=== PATIENT | male | born 1980 | race African-American/Black ===

== ENCOUNTER 2018-09-07 05:09 | Emergency (ER) | payer OTHER ==
[2018-09-07] MEDS: LACTATED RINGERS SOLUTION 1,000 ML IV STA ×3 (05:10→07:06)
--- NOTE | 2018-09-07 05:22 | PDOC ---
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 Patient states that when he vomits his abdomen hurts all over but when he isn't vomiting he has no abdominal pain. The patient states he has been feeling extremely dehydrated for the past 2 days but had to keep working because he needs to save up to buy a house soon. Patient denies having a headache, neck pain, blurry vision, chest pain, SOB, difficulty breathing, dysuria, frequency, urgency, numbness, weakness, tingling , or chills. PCP: None PSH: Umbilical hernia surgery, pilonidal cyst surgery Allergies: NKA, NKDA Social Hx: Smokes 1 PPD, smokes marijuana occasionally, denies alcohol or illicit drug usage Past History - Past Medical History Allergies/Adverse Reactions: Allergies Allergy/AdvReac Type Severity Reaction Status Date / Time No Known Allergies Allergy Verified 09/07/18 05:21 Home Medications: Ambulatory Orders NK [No Known Home Medication] 09/07/18 - Suicide/Smoking/Psychosocial Hx Smoking History: Current every day smoker Have you smoked in the past 12 months: No Number of Cigarettes Smoked Daily: 5 Information on smoking cessation initiated: No Hx Alcohol Use: No Drug/Substance Use Hx: No Review of Systems - Review of Systems Able to Perform ROS?: Yes Comments:: CONSTITUTIONAL: Present: generalized weakness, malaise Absent: fever, chills, diaphoresis, loss of appetite HEENT: Absent: rhinorrhea, nasal congestion, throat pain, throat swelling, difficulty swallowing, mouth swelling, ear pain, eye pain, visual Changes CARDIOVASCULAR: Absent: chest pain, syncope, palpitations, irregular heart rate, lightheadedness , peripheral edema RESPIRATORY: Absent: cough, shortness of breath, dyspnea with exertion, orthopnea, wheezing, stridor, hemoptysis GASTROINTESTINAL: Present: Abdominal pain, nausea, vomiting Absent: abdominal distension, diarrhea, constipation, melena, hematochezia GENITOURINARY: Absent: dysuria, frequency, urgency, hesitancy, hematuria, flank pain, genital pain MUSCULOSKELETAL: Absent: myalgia, arthralgia, joint swelling SKIN: Absent: rash, itching, pallor HEMATOLOGIC/IMMUNOLOGIC: Absent: easy bleeding, easy bruising, lymphadenopathy, frequent infections ENDOCRINE: Absent: unexplained weight gain, unexplained weight loss, heat intolerance, cold intolerance NEUROLOGIC: Absent: headache, focal weakness or paresthesias, dizziness, unsteady gait, seizure, mental status changes, bladder or bowel incontinence PSYCHIATRIC: Absent: anxiety, depression, suicidal or homicidal ideation, hallucinations. *Physical Exam - Vital Signs Last Vital Signs Temp Pulse Resp BP Pulse Ox 98.9 F 58 L 18 143/97 99 09/07/18 05:09/07/18 05:09/07/18 05:09/07/18 05:09/07/18 05:17 - Physical Exam Comments: GENERAL: Well developed, well nourished. Awake and alert. Mild distress. HEENT: Normocephalic, atraumatic. PERRLA, EOMI. No conjunctival pallor. Sclera are non- icteric. Moist mucous membranes. Oropharynx is clear. NECK: Supple. Full ROM. No JVD. No lymphadenopathy. CARDIOVASCULAR: Regular rate and rhythm. No murmurs, rubs, or gallops. Distal pulses are 2+ and symmetric. PULMONARY: No evidence of respiratory distress. Lungs clear to auscultation bilaterally. No wheezing, rales or rhonchi. ABDOMINAL: Soft. Non-tender. Non-distended. No rebound or guarding. No organomegaly. Normoactive bowel sounds. MUSCULOSKELETAL Normal range of motion at all joints. No bony deformities or tenderness. No CVA tenderness. EXTREMITIES: No cyanosis. No clubbing. No edema. No calf tenderness. SKIN: Warm and dry. Normal capillary refill. No rashes. No jaundice. NEUROLOGICAL: Alert, awake, appropriate. Cranial nerves 2-12 intact. No deficits to light touch in face, upper extremities and lower extremities. No motor deficits in the in face, upper extremities and lower extremities. Normal speech. Gait is normal without ataxia. PSYCHIATRIC: Cooperative. Good eye contact. Appropriate mood and affect. Heart Score/ECG Review - ECG Intrepretation Rhythm: Regular Rhythm - [place]: Normal - P and HI Prominent R with upright T in V1 (true posterior IA): No Delta Wave(s) Present: No WPW: No - QRS Increased Voltage: Limb Leads Poor R Wave Progression: No Q Wave Present: No - ST and T Early Repolarization: Yes Non Specific ST-T Wave changes: No T Wave Elevation Suggest: Electrolyte Imbalance Flattened T Waves: No Prolonged Q-T Interval: No - ECG Impressions Normal ECG: No Non-specific ST Elevation: No Ischemic Changes: No Electrolyte Imbalance: Electrolyte Imbalance Torsades julia Pointes: No WPW: No ED Treatment Course - LABORATORY CBC & Chemistry Diagram: 09/07/18 05:32 09/07/18 08:18 Medical Decision Making - Medical Decision Making Yaakov Cazares is a 37 yo M w a pmh sig for asthma who presents to the ER after 10 episodes of nausea and vomiting saying he believes he is having a heat 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 Patient states that when he vomits his abdomen hurts all over but when he isn't vomiting he has no abdominal pain. The patient states he has been feeling extremely dehydrated for the past 2 days but had to keep working because he needs to save up to buy a house soon. Vital Signs Temp Pulse Resp BP Pulse Ox 98.9 F 58 L 18 143/97 99 09/07/18 05:17 09/07/18 05:17 09/07/18 05:17 09/07/18 05:17 09/07/18 05:17 DDx IBNLT: Heat stroke vs heat exhaustion, dehydration, gastroenteritis, electrolyte/metabolic disturbance, arrhythmia -Patient states he has not been to a doctor in a long time and requests to be STD tested Plan: Labs, Urine, IV hydration, EKG, analgesia, STD tests, GI cocktail, anti- emetics, re-asses. Labs: Patient has an elevated BUN/Cr and is experiencing an ANETTE. Patient also has a mild hyponatremia and decreased MCV. - Will hydrate the patient and then resend a BMP - Will obtain a CPK - Hydrated patient w 4 liters of fluid. 2 LR and 2 NS. Repeat labs: Cr and BUN came down, sodium normalized Urine: Trace ketonuria EKG: NS rate of 65, narrow complexes, normal axis, there is borderline LVH, No ST elevation or depression, There is benign early repol, TWI in aVL, Peaked T- waves in pre-cordial leads, HI - 124, QTc - 407. Re-assessment: Patient feels much better after IV hydration and analgesia and requests to be discharged home. He has no further complaints. Disposition: Home if clinically improved and labs improve after hydration. Patient will be signed out to the day team pending repeat BMP, CPK, urine, additional hydration, and further care and disposition. *DC/Admit/Observation/Transfer Diagnosis at time of Disposition: ANETTE (acute kidney injury), Dehydration Nausea & vomiting Qualifiers: Vomiting type: unspecified Vomiting Intractability: unspecified Qualified Code( s): R11.2 - Nausea with vomiting, unspecified Abdominal pain Qualifiers: Abdominal location: generalized Qualified Code(s): R10.84 - Generalized abdominal pain - Discharge Dispostion Disposition: HOME Condition at time of disposition: Improved - Referrals Referrals: [facility] [place] [facility] at [place] [Provider Group] - Patient Instructions Printed Discharge Instructions: DI for Heat Exhaustion and Heat Stroke, DI for Dehydration -- Adult, Acute Renal Failure Additional Instructions: stay well hydrated with the current heat wave stay indoors and cooling environment follow up with your doctor. If you have any worsening of symptoms or any other concerns please return to the ED immediately. Return if worsening symptoms including fevers, headache, vomiting, visual or hearing disturbances, abdominal pain, chest pain, shortness of breath, syncope, dehydration, inability to take things by mouth/vomiting, altered mental status, or worsening concerning symptoms. Print Language: AZERI - Post Discharge Activity
[2018-09-07] MEDS ORDERED: SODIUM CHLORIDE 1,000 ML IV STA (05:25)
--- NOTE | 2018-09-07 05:25 | PDOC ---
Attending Attestation - Resident Resident Name: Willi Manuel - ED Attending Attestation I have performed the following: I have examined & evaluated the patient, The case was reviewed & discussed with the resident, I agree w/resident's findings & plan - HPI HPI: 09/07/18 07:03 Pt comes with heat exposure and exhaustion - Physicial Exam PE: 09/07/18 20:10 Agree with resdient exam - Medical Decision Making 09/07/18 07:04 Hydrate with 2L and repeat labs after 09/07/18 20:10 Pt will be signed out to the day team to reeval and repeat labs once he is hydrated.
[2018-09-07] MEDS ORDERED: ONDANSETRON 4 MG/2 ML VIAL IVPUSH ONE (05:27)
[2018-09-07 05:30] VITALS: BMI 21.7
[2018-09-07] MEDS ORDERED: ONDANSETRON 4 MG/2 ML VIAL ONE (05:34)
[2018-09-07] MEDS ORDERED: ACETAMINOPHEN 325 MG TABLET (FP) PO ONE (05:40)
[2018-09-07] MEDS ORDERED: FAMOTIDINE 20 MG/50 ML IVPB 20 MG/50 ML MG IVPB ONE ×2 (05:40→05:58)
[2018-09-07] MEDS ORDERED: MAG HYDROX/AL HYDROX/SIMETH -MYLANTA- ORAL SUSPENSION PO ONE (05:40)
[2018-09-07 05:49] LABS: EOS % 0.4 % (0-4.5); HEMATOCRIT 46.6 % (35.4-49); HEMOGLOBIN 15.5 GM/dL (11.7-16.9); LYMPH % 24.2 % (8-40); MCH 24.3 pg (25.7-33.7); MCHC 33.1 g/dl (32.0-35.9); MEAN CELL VOLUME 73.4 fl (80-96); MEAN PLT VOLUME 8.7 fl (7.5-11.1); MONO % 10.4 % (3.8-10.2); PLATELET COUNT 374 K/MM3 (134-434); RBC 6.36 M/mm3 (4.00-5.60); RDW 13.4 % (11.9-15.9); WHITE BLOOD COUNT 7.2 K/mm3 (4.0-10.0)
[2018-09-07] MEDS ORDERED: MAG HYDROX/AL HYDROX/SIMETH 30 ML UNIT-DOSE CUP ONE (05:57)
[2018-09-07] MEDS ORDERED: ACETAMINOPHEN 325 MG TABLET (FP) ONE (05:59)
[2018-09-07 06:18] LABS: ALBUMIN 5.3 g/dl (3.4-5.0); ALK PHOS 118 U/L (45-117); ANION GAP 10 MMOL/L (8-16); BILIRUBIN,TOTAL 0.9 mg/dL (0.2-1); BLOOD UREA NITROGEN 22.7 mg/dL (7-18); CALCIUM 10.5 mg/dL (8.5-10.1); CHLORIDE 100 mmol/L (98-107); CO2 24 mmol/L (21-32); CREATININE 1.7 mg/dL (0.55-1.3); GLUCOSE,RANDOM 113 mg/dL (74-106); PHOSPHOROUS 4.2 mg/dL (2.5-4.9); POTASSIUM 5.1 mmol/L (3.5-5.1); SGOT/AST 31 U/L (15-37); SGPT/ALT 32 U/L (13-61); SODIUM 134 mmol/L (136-145); TOT PROT 8.9 g/dl (6.4-8.2)
[2018-09-07 06:42] LABS: LIPASE 167 U/L (73-393); MAGNESIUM 2.7 mg/dL (1.8-2.4)
[2018-09-07] MEDS ORDERED: SODIUM CHLORIDE 0.9% 500 ML INFUS.BAG IV ONE (07:02)
[2018-09-07] MEDS: SODIUM CHLORIDE 0.9% 500 ML INFUS.BAG IV ONE ×2 (07:04→07:08)
[2018-09-07] MEDS ORDERED: LACTATED RINGERS SOLUTION 1000 ML INFUS.BAG IV ONE (07:07)
[2018-09-07 07:56] LABS: URINE APPEARANCE CLEAR; URINE BILIRUBIN NEGATIVE (NEGATIVE); URINE COLOR YELLOW; URINE GLUCOSE (UA) NEGATIVE (NEGATIVE); URINE KETONE TRACE (NEGATIVE); URINE LEUK ESTERASE NEGATIVE (NEGATIVE); URINE NITRITE NEGATIVE (NEGATIVE); URINE PROTEIN NEGATIVE (NEGATIVE)
--- NOTE | 2018-09-07 08:55 | PDOC ---
*Physical Exam - Vital Signs Last Vital Signs Temp Pulse Resp BP Pulse Ox 98.9 F 76 19 115/59 L 99 09/07/18 05:17 09/07/18 08:36 09/07/18 08:36 09/07/18 08:36 09/07/18 08:36 <Fina Guardado - Last Filed: 09/07/18 09:10> - Vital Signs Last Vital Signs Temp Pulse Resp BP Pulse Ox 98.9 F 76 19 115/59 L 99 09/07/18 05:17 09/07/18 08:36 09/07/18 08:36 09/07/18 08:36 09/07/18 08:36 <TabbyTomer - Last Filed: 09/07/18 09:12> ED Treatment Course - LABORATORY CBC & Chemistry Diagram: 09/07/18 05:32 09/07/18 08:18 - ADDITIONAL ORDERS Additional order review: Laboratory Results 09/07/18 09/07/18 09/07/18 08:18 07:37 05:32 Sodium 139 Potassium 4.6 Chloride 107 Carbon Dioxide 25 Anion Gap 7 L BUN 19.5 H Creatinine 1.3 Est GFR (CKD-EPI)AfAm 81.93 Est GFR (CKD-EPI)NonAf 70.69 Random Glucose 101 Lactic Acid Calcium 8.8 Phosphorus Cancelled Magnesium Total Bilirubin AST ALT Alkaline Phosphatase Creatine Kinase Creatine Kinase Index CK-MB (CK-2) Troponin I Total Protein Albumin Lipase Urine Color Yellow Urine Appearance Clear Urine pH 5.0 Ur Specific [place] 1.020 Urine Protein Negative Urine Glucose (UA) Negative Urine Ketones Trace H Urine Blood Negative Urine Nitrite Negative Urine Bilirubin Negative Urine Urobilinogen 1.0 Ur Leukocyte Esterase Negative 09/07/18 09/07/18 09/07/18 05:32 05:32 05:32 Sodium 134 L Potassium 5.1 Chloride 100 Carbon Dioxide 24 Anion Gap 10 BUN 22.7 H Creatinine 1.7 H Est GFR (CKD-EPI)AfAm 59.24 Est GFR (CKD-EPI)NonAf 51.11 Random Glucose 113 H Lactic Acid 1.8 Calcium 10.5 H Phosphorus 4.2 Magnesium Cancelled 2.7 H Total Bilirubin 0.9 AST 31 ALT 32 Alkaline Phosphatase 118 H Creatine Kinase 1085 H Creatine Kinase Index 0.1 CK-MB (CK-2) 2.0 Troponin I < 0.02 Total Protein 8.9 H Albumin 5.3 H Lipase Cancelled 167 Urine Color Urine Appearance Urine pH Ur Specific [place] Urine Protein Urine Glucose (UA) Urine Ketones Urine Blood Urine Nitrite Urine Bilirubin Urine Urobilinogen Ur Leukocyte Esterase 09/07/18 05:32 RBC 6.36 H MCV 73.4 L MCHC 33.1 RDW 13.4 MPV 8.7 Neutrophils % 64.0 Lymphocytes % 24.2 Monocytes % 10.4 H Eosinophils % 0.4 Basophils % 1.0 - Medications Given in the ED: ED Medications Discontinued Medications Generic Name Dose Route Start Last Admin Trade Name Freq PRN Reason Stop Dose Admin Acetaminophen 975 mg 09/07/18 05:40 09/07/18 06:07 Tylenol - PO 09/07/18 05:41 Not Given ONCE ONE Al Hydroxide/Mg Hydroxide 30 ml 09/07/18 05:40 09/07/18 06:07 Mylanta Suspension - PO 09/07/18 05:41 30 ml ONCE ONE Administration Lactated Ringer's 1,000 mls @ 1,000 mls/hr 09/07/18 05:25 09/07/18 05:10 Lactated Ringers Solution IV 09/07/18 06:24 1,000 mls/hr ONCE STA Administration Sodium Chloride 1,000 mls @ 1,000 mls/hr 09/07/18 05:25 09/07/18 05:38 Normal Saline - IV 09/07/18 06:24 1,000 mls/hr ASDIR STA Administration Famotidine/Sodium Chloride 20 mg in 50 mls @ 100 mls/hr 09/07/18 05:40 06:07 Pepcid 20 Mg Premixed Ivpb - IVPB 09/07/18 06:09 100 mls/hr ONCE ONE Administration Lactated Ringer's 1,000 ml 09/07/18 07:07 09/07/18 07:08 Lactated Ringers Solution IV 09/07/18 07:08 Not Given NOW ONE Ondansetron HCl 4 mg 09/07/18 05:27 09/07/18 05:38 Zofran Injection IVPUSH 09/07/18 05:28 4 mg ONCE ONE Administration Sodium Chloride 1,000 ml 09/07/18 06:51 09/07/18 07:08 Normal Saline - IV 09/07/18 06:52 Not Given ONCE ONE Sodium Chloride 1,000 ml 09/07/18 07:02 09/07/18 07:05 Normal Saline - IV 09/07/18 07:03 1,000 ml ONCE ONE Administration <Fina Guardado - Last Filed: 09/07/18 09:10> - LABORATORY CBC & Chemistry Diagram: 09/07/18 05:32 09/07/18 08:18 - ADDITIONAL ORDERS Additional order review: Laboratory Results 09/07/18 09/07/18 09/07/18 07:37 05:32 05:32 Sodium Potassium Chloride Carbon Dioxide Anion Gap BUN Creatinine Est GFR (CKD-EPI)AfAm Est GFR (CKD-EPI)NonAf Random Glucose Lactic Acid Calcium Phosphorus Cancelled Magnesium Cancelled Total Bilirubin AST ALT Alkaline Phosphatase Creatine Kinase Creatine Kinase Index CK-MB (CK-2) Troponin I Total Protein Albumin Lipase Cancelled Urine Color Yellow Urine Appearance Clear Urine pH 5.0 Ur Specific [place] 1.020 Urine Protein Negative Urine Glucose (UA) Negative Urine Ketones Trace H Urine Blood Negative Urine Nitrite Negative Urine Bilirubin Negative Urine Urobilinogen 1.0 Ur Leukocyte Esterase Negative 09/07/18 09/07/18 05:32 05:32 Sodium 134 L Potassium 5.1 Chloride 100 Carbon Dioxide 24 Anion Gap 10 BUN 22.7 H Creatinine 1.7 H Est GFR (CKD-EPI)AfAm 59.24 Est GFR (CKD-EPI)NonAf 51.11 Random Glucose 113 H Lactic Acid 1.8 Calcium 10.5 H Phosphorus 4.2 Magnesium 2.7 H Total Bilirubin 0.9 AST 31 ALT 32 Alkaline Phosphatase 118 H Creatine Kinase 1085 H Creatine Kinase Index 0.1 CK-MB (CK-2) 2.0 Troponin I < 0.02 Total Protein 8.9 H Albumin 5.3 H Lipase 167 Urine Color Urine Appearance Urine pH Ur Specific [place] Urine Protein Urine Glucose (UA) Urine Ketones Urine Blood Urine Nitrite Urine Bilirubin Urine Urobilinogen Ur Leukocyte Esterase 09/07/18 05:32 RBC 6.36 H MCV 73.4 L MCHC 33.1 RDW 13.4 MPV 8.7 Neutrophils % 64.0 Lymphocytes % 24.2 Monocytes % 10.4 H Eosinophils % 0.4 Basophils % 1.0 - Medications Given in the ED: ED Medications Discontinued Medications Generic Name Dose Route Start Last Admin Trade Name Freq PRN Reason Stop Dose Admin Acetaminophen 975 mg 09/07/18 05:40 09/07/18 06:07 Tylenol - PO 09/07/18 05:41 Not Given ONCE ONE Al Hydroxide/Mg Hydroxide 30 ml 09/07/18 05:40 09/07/18 06:07 Mylanta Suspension - PO 09/07/18 05:41 30 ml ONCE ONE Administration Lactated Ringer's 1,000 mls @ 1,000 mls/hr 09/07/18 05:25 09/07/18 05:10 Lactated Ringers Solution IV 09/07/18 06:24 1,000 mls/hr ONCE STA Administration Sodium Chloride 1,000 mls @ 1,000 mls/hr 09/07/18 05:25 09/07/18 05:38 Normal Saline - IV 09/07/18 06:24 1,000 mls/hr ASDIR STA Administration Famotidine/Sodium Chloride 20 mg in 50 mls @ 100 mls/hr 09/07/18 05:40 06:07 Pepcid 20 Mg Premixed Ivpb - IVPB 09/07/18 06:09 100 mls/hr ONCE ONE Administration Lactated Ringer's 1,000 ml 09/07/18 07:07 09/07/18 07:08 Lactated Ringers Solution IV 09/07/18 07:08 Not Given NOW ONE Ondansetron HCl 4 mg 09/07/18 05:27 09/07/18 05:38 Zofran Injection IVPUSH 09/07/18 05:28 4 mg ONCE ONE Administration Sodium Chloride 1,000 ml 09/07/18 06:51 09/07/18 07:08 Normal Saline - IV 09/07/18 06:52 Not Given ONCE ONE Sodium Chloride 1,000 ml 09/07/18 07:02 09/07/18 07:05 Normal Saline - IV 09/07/18 07:03 1,000 ml ONCE ONE Administration <Tomer Mcnair - Last Filed: 09/07/18 09:12> Medical Decision Making - Medical Decision Making 09/07/18 08:57 pt signed out from Dr Cabrera pending repeat labs/eval heat exhaustion from exposure yesterday labs with mild ANETTE and elevated CK levels consistent with heat exhaustion, mild rhabdo after aggressive hydration, repeat labs improved, including Cr pt clinically improved VS wnl DC in stable condition, instructions for hydration and supportive care, return precautions <Fina Guardado - Last Filed: 09/07/18 09:10> *DC/Admit/Observation/Transfer - Discharge Dispostion Decision to Admit order: No <Fina Guardado - Last Filed: 09/07/18 09:10> - Discharge Dispostion Decision to Admit order: No <Tomer Mcnair - Last Filed: 09/07/18 09:12> Diagnosis at time of Disposition: ANETTE (acute kidney injury), Dehydration Nausea & vomiting Qualifiers: Vomiting type: unspecified Vomiting Intractability: unspecified Qualified Code( s): R11.2 - Nausea with vomiting, unspecified Abdominal pain Qualifiers: Abdominal location: generalized Qualified Code(s): R10.84 - Generalized abdominal pain - Discharge Dispostion Disposition: HOME Condition at time of disposition: Improved - Referrals Referrals: [facility] [place] Internal [facility] at [place] [Provider Group] - Patient Instructions Printed Discharge Instructions: DI for Heat Exhaustion and Heat Stroke, DI for Dehydration -- Adult, Acute Renal Failure Additional Instructions: stay well hydrated with the current heat wave stay indoors and cooling environment follow up with your doctor. If you have any worsening of symptoms or any other concerns please return to the ED immediately. Return if worsening symptoms including fevers, headache, vomiting, visual or hearing disturbances, abdominal pain, chest pain, shortness of breath, syncope, dehydration, inability to take things by mouth/vomiting, altered mental status, or worsening concerning symptoms. Print Language: DANISH - Post Discharge Activity
[2018-09-07 08:56] LABS: BLOOD UREA NITROGEN 19.5 mg/dL (7-18); CALCIUM 8.8 mg/dL (8.5-10.1); CREATININE 1.3 mg/dL (0.55-1.3); POTASSIUM 4.6 mmol/L (3.5-5.1)
[2018-09-07 10:16] VITALS: BP 113/70; PULSE 68; TEMP 98.5
--- NOTE | 2018-09-08 00:01 | EKG ---
Test Reason : Blood Pressure : / mmHG Vent. Rate : 065 BPM Atrial Rate : 065 BPM P-R Int : 124 ms QRS Dur : 084 ms QT Int : 392 ms P-R-T Axes : 070 088 075 degrees QTc Int : 407 ms NORMAL SINUS RHYTHM WITH SINUS ARRHYTHMIA EARLY REPOLARIZATION NORMAL ECG NO PREVIOUS ECGS AVAILABLE Confirmed by ROBERT WHITE MD ([id number]) on 09/08/2018 12:01:04 AM Referred By: Confirmed By:ROBERT WHITE MD
== END 2018-09-07 10:16 | disposition home or self-care (01) ==
LOC: JER 05:09
PROC: 3E033GC Introduction of Other Therapeutic Substance into Peripheral Vein, Percutaneous Approach (ICD-10-PCS; principal; 2018-09-07)
PROC: 3E0337Z Introduction of Electrolytic and Water Balance Substance into Peripheral Vein, Percutaneous Approach (ICD-10-PCS; 2018-09-07)
PROC: 3E0337Z Introduction of Electrolytic and Water Balance Substance into Peripheral Vein, Percutaneous Approach (ICD-10-PCS; 2018-09-07)
PROC: 3E033GC Introduction of Other Therapeutic Substance into Peripheral Vein, Percutaneous Approach (ICD-10-PCS; 2018-09-07)
DX: N17.9 Acute kidney failure, unspecified (principal); E86.0 Dehydration; R11.2 Nausea with vomiting, unspecified; R10.84 Generalized abdominal pain; J45.909 Unspecified asthma, uncomplicated
CPT/HCPCS: 36415; 80048; 80053; 81003; 82550; 82553; 83605; 83690; 83735; 84100; 84484; 85025; 93005; 93010; 99283-25; J7030